=== PATIENT | female | born 2000 | race Hispanic/Latino ===

== ENCOUNTER 2024-01-14 22:01 | Emergency (ER) | payer OTHER, SELFPAY ==
[2024-01-14 22:02] VITALS: BP 116/90; PULSE 123; RESP 25; TEMP 37.4; O2SAT 99
[2024-01-14 22:03] VITALS: BMI 29.0
--- NOTE | 2024-01-14 22:27 | CT_ITS ---
INDICATION: abd pain COMPARISON: None. IV Contrast dosage and agent: 100 cc Isovue-370 IV. A radiation dose optimization technique was used for this scan. RADIATION DOSAGE (If Supplied By Facility): CTDIvol/DLP = ( 14.9 ) / ( 1087.30 ) mGy/mGycm FINDINGS: Contrast enhanced serial CT axial images through the abdomen and pelvis with coronal and sagittal reformatted series. PANCREAS: No peripancreatic fat stranding. BOWEL/MESENTERY: No dilated bowel loops. No significant free fluid. No free air. GALLBLADDER: No pericholecystic fat stranding. LIVER/STOMACH: Fatty liver. Likely associated hepatomegaly measuring up to 23 cm in the craniocaudal dimension. URINARY COLLECTING SYSTEM/ KIDNEYS: No obstructing ureteral calculus. No significant renal parenchymal abnormality. APPENDIX: Normal caliber gas containing appendix. LUNG BASES: Unremarkable. BONES: Unremarkable for age. CT/Abdomen/Pelvis W IV Cont ONLY IMPRESSION: No acute abdominal abnormality is identified, to include normal appendix and no evidence of obstructing ureteral calculus. Fatty liver with likely associated hepatomegaly. Electronically Signed: Tony Wright MD at 23:39 EDT ,
[2024-01-14] MEDS: Acetaminophen 500 MG Tablet 1000 MG PO (22:33)
[2024-01-14] MEDS: 0.9% Normal Saline (1000mL) 1,000 ML 999 ML IV (22:33)
[2024-01-14 22:34] LABS: Absolute Lymphocyte Count 1.15 X10^3/uL (0.83-4.51); Absolute Neutrophil Count 9.1 X10^3/uL (2.0-7.7); Basophil# 0.02 X10^3/uL; Basophil% 0.2 % (0-1); Eosinophil# 0.01 X10^3/uL; Eosinophils% 0.1 % (0-5); Hematocrit 36.9 % (37-47); Hemoglobin 12.9 g/dL (12.0-15.0); Lymphocyte # 1.15 X10^3/ul (0.83-4.51); Lymphocyte % 10.4 % (19-41); Mean Corpuscular Hgb 31.5 pg (27.0-32.0); Mean Corpuscular Volume 90.2 fL (81-99); Mean Platelet Vol. 10.5 fl (6.2-12.0); Monocyte# 0.78 X10^3/uL; NRBC Flagged by Analyzer 0 % (0-5); Neutrophil # 9.12 X10^3/uL (2.7-7.7); Platelet Count 229 K/mm3 (150-450); RBC Distribution Width CV 12.7 % (11.6-14.6); RBC Distribution Width SD 41.9 fl (35.1-43.9); Red Blood Count 4.09 M/mm3 (4.2-5.4); White Blood Count 11.1 K/mm3 (4.4-11.0)
[2024-01-14] MEDS: Ondansetron 4 MG/2 ML Vial IV (22:34)
[2024-01-14] MEDS: Morphine 4 MG/ML Syringe IV (22:34)
--- NOTE | 2024-01-14 22:36 | EDS_ITS ---
HPI History of Present Illness Chief Complaint: Abd Pain Informant: patient and spouse/S.O. Narrative Narrative: Patient is a 23-year-old female with no significant past medical history. She states she awoke this morning and noticed some mild generalized pain in the upper abdomen. She states with this she has had low-grade fever and nausea without vomiting. She denies any dysuria or hematuria or concern for . She states has been no vaginal discharge and denies concern for STD. She reports associated with the abdominal pain she is also noticed some right ear pain. She states there is no known sick contact. She states symptoms have not improved throughout the day and with that she has concern for infection and comes in for evaluation. PFSH PFSH Medical History no medical history no medical history Home Medications ?Medication ?Instructions ?Recorded ?Last Taken ?Type ondansetron 4 mg disintegrating 4 mg PO TID PRN nausea and 01/15/24 Unknown Rx tablet vomiting #21 tabs oxycodone-acetaminophen 5 mg-325 1 tab PO Q6H PRN pain 3 days #12 01/15/24 Unknown Rx mg tablet (Percocet) tabs Allergy/AdvReac Type Severity Reaction Status Date / Time No Known Allergies Allergy Verified 01/14/24 22:02 Social History Smoking Status: Never smoker [facility] ED Constitutional Constitutional ED: Reports fever(s) and subjective; Denies chills ENT ENT ED: Reports ear pain right; Denies sore throat Cardiovascular Cardiovascular: Denies chest pain Respiratory/Chest Respiratory/Chest: Denies cough or dyspnea Gastrointestinal Gastrointestinal: Reports abdominal pain and nausea; Denies constipation, diarrhea or vomiting Genitourinary Genitourinary ED: Denies dysuria or hematuria Musculoskeletal Musculoskeletal: Reports myalgias Integumentary Denies rash Neurologic Neurologic: Denies headache(s) Hematologic/Lymphatic Hematologic/Lymphatic: Denies easy bleeding or easy bruising EXAM Physical Exam Const Vital Signs: 01/14/24 22:02 01/14/24 22:43 01/15/24 00:29 Temperature 99.4 F H 100.7 F H Temperature Source Temporal Oral Pulse Rate 123 H 115 H 121 H Respiratory Rate 25 H 22 H 26 H Blood Pressure 116/90 H 124/66 H 117/61 Blood Pressure Mean 98 85 79 Pulse Ox 99 100 98 Oxygen Delivery Method Room Air Room Air Room Air 01/15/24 02:00 01/15/24 02:16 Temperature 98.4 F Temperature Source Pulse Rate 119 H 117 H Respiratory Rate 18 20 H Blood Pressure 102/64 90/77 Blood Pressure Mean 76 81 Pulse Ox 97 98 Oxygen Delivery Method Room Air Positive well nourished and well developed General Appearance ED: well developed; Negative for pallor HEENT Reports moist mucous membranes HEENT Narrative: Bilateral TMs are slightly retracted but show no secondary findings to suggest infection There is mild cobblestoning the posterior pharynx without airway edema or compromise or secondary changes to suggest infection Eyes PERRL and EOMs intact bilaterally General Eye ED: Negative for scleral icterus Neck supple Neck Narrative: No nuchal rigidity or meningeal signs Resp normal respiratory effort and clear to auscultation bilaterally Cardio regular rhythm Rate: tachycardic and other Other Details: Tachycardic rate with regular rhythm No murmurs rubs or gallop Radial and carotid pulses are equal and symmetric GI non-distended and no masses GI Narrative: Abdomen is soft and nondistended with normal active bowel sounds. Patient has mild pain with palpation in the midepigastric region without voluntary guarding or rigidity. No pulsatile mass or fluid wave. Negative Lynn sign Auscultation: normoactive bowel sounds Palpation: soft Back/Spine no CVA tenderness Extremity normal to inspection Neuro oriented x3, CN's II-XII intact bilaterally and no sensory deficits noted Sensorium / Orientation: alert Motor Exam: strength 5/5 throughout Psych mental status grossly normal Skin no rashes or lesions noted General Skin Exam: Negative for jaundice or pallor MDM MDM MDM Narrative Medical decision making narrative: Patient arrived to the ER with low-grade fever and mild tachycardia. She had complaints such as midepigastric abdominal pain ear pain and fatigue. There is concern this could be biliary colic versus acute cholecystitis versus pancreatitis versus abnormal UTI potential complication or viral syndrome such as COVID RSV or influenza. Therefore basic labs along with urine sample and CT scan were obtained. Labs revealed no clinically significant findings and urine showed no sign of infection. Viral swab was also negative. CT scan revealed no acute abdominal pathology. Therefore at this time as overall workup is negative and patient's had improvement of symptoms and vitals with treatment in the ER I feel that she is otherwise safe for discharge. Patient was informed this is most likely a viral process based on her constellation of symptoms and low-grade fever but as there is no signs of systemic infection or underlying acute intestinal process she can be treated with symptomatic medications History & Record Review Discussion w/independent historian: Patient and Significant other Lab Data Attestation: I reviewed the patient's lab results. Labs: Laboratory Results - last 24 hr 01/14/24 01/14/24 22:24 22:32 WBC 11.1 H RBC 4.09 L Hgb 12.9 Hct 36.9 L MCV 90.2 MCH 31.5 MCHC 35.0 RDW Std Deviation 41.9 RDW Coeff of [place] 12.7 Plt Count 229 MPV 10.5 Immature Gran % (Auto) 0.300 Neut % (Auto) 82.0 H Lymph % (Auto) 10.4 L Webster % (Auto) 7.0 Eos % (Auto) 0.1 Baso % (Auto) 0.2 Absolute Neuts (auto) 9.1 H Absolute Lymphs (auto) 1.15 Nucleated RBC % 0 Sodium 132 L Potassium 3.2 L Chloride 101 Carbon Dioxide 21.0 Anion Gap 10 BUN 13 Creatinine 0.88 Estim Creat Clear Calc 101.51 Est GFR (MDRD) Af Amer 101 Est GFR (MDRD) Non-Af 83 BUN/Creatinine Ratio 14.9 Glucose 120 H Calcium 8.9 Total Bilirubin 0.50 Direct Bilirubin 0.20 AST 71 H ALT 125 H Alkaline Phosphatase 113 Total Protein 8.3 H Albumin 4.1 Globulin 4.2 Lipase 25 Urine Color Yellow Urine Clarity Clear Urine pH 8.0 Ur Specific [place] 1.010 Urine Protein 15 H Urine Glucose (UA) Normal Urine Ketones 5 H Urine Occult Blood Negative Urine Nitrite Negative Urine Bilirubin Negative Urine Urobilinogen 1 H Ur Leukocyte Esterase 25 H Urine RBC 0 SEEN Urine WBC 0-5 SEEN Ur Squamous Epith Cells 5-10 SEEN Amorphous Sediment 1+ PHOS Urine Bacteria 0 SEEN Urine Mucus 0 SEEN Urine Test Negative Radiography Diagnostic Testing: Clinical Impression(s) from Imaging Studies Abdomen/Pelvis CT 01/14/24 22:27 IMPRESSION: No acute abdominal abnormality is identified, to include normal appendix and no evidence of obstructing ureteral calculus. Fatty liver with likely associated hepatomegaly. Electronically Signed: Tony Wright MD at 23:39 EDT , Discharge Plan Triage Chief Complaint: Abd Pain ED Provider: Tristan Huff Dx/Rx/DC Orders Clinical Impression: Nonspecific abdominal pain, Viral syndrome, Pyrexia Instructions: Abdominal Pain, ED Fever Control (Adult), ED Viral Syndrome (Adult) Prescriptions: New oxycodone-acetaminophen [Percocet] 5-325 mg tablet 1 tab PO Q6H PRN (Reason: pain) 3 Days Qty: 12 0RF ondansetron 4 mg tablet,disintegrating 4 mg PO TID PRN (Reason: nausea and vomiting) Qty: 21 0RF Primary Care Provider: Care Physician,No Primary Referrals: Rambo Hernandez MD [Med Staff - Active Staff] - Care Physician,No Primary [Primary Care Provider] - Activity Restrictions/Additional Instructions: Your workup today did not show any signs of COVID urinary tract infection or abdominal infection such as appendicitis or pancreatitis. This indicates you have a virus causing your symptoms which would typically last 3 to 7 days before resolving. Stay well-hydrated and keep your fever under control and return to the ER should you have any further concerns Print Language: Syriac Disposition Disposition: Home, Self Care Discharge Date/Time: 01/15/24 02:17
[2024-01-14 22:38] LABS: Bacteria 0 SEEN /hpf (None Seen); Mucous, Urine 0 SEEN /hpf (<or=2+); Red Blood Cells-Urine 0 SEEN /hpf (0-5)
[2024-01-14 22:40] LABS: Color, Urine Yellow (Yellow); Glucose, Dipstick Normal (Normal); Ketone-Dipstick 5 mg/dl (Negative); Leukocyte Esterase-Dipstick 25 /ul (Negative); Nitrite-Dipstick Negative (Negative); Occult Blood-Urine Negative /ul (Negative); Protein-Dipstick 15 mg/dl (Negative); Urine Bilirubin Dipstick Negative (Negative); Urine Clarity Clear (Clear); Urine Urobilinogen 1 mg/dl (Normal)
[2024-01-14 22:43] VITALS: BP 124/66; PULSE 115; RESP 22; O2SAT 100
[2024-01-14 22:44] LABS: Internal QC Validated? YES +Cl - CLEAR BKGD; Pregnancy, Urine Negative Negative
[2024-01-14 22:48] LABS: Amorphous Sediment 1+ PHOS; Squamous Epithelial Cells - UA 5-10 SEEN /hpf (5-10); White Blood Cells 0-5 SEEN /hpf (0-5)
[2024-01-14 22:52] LABS: AST(SGOT) 71 U/L (15-37); Alanine Aminotransfer ALT/SGPT 125 U/L (13-56); Albumin, Serum 4.1 g/dL (3.2-5.0); Alkaline Phosphatase 113 U/L (45-117); Anion Gap 10 (5-15); BUN 13 mg/dL (7-18); BUN/Creat Ratio 14.9 RATIO (10-20); Calcium,Total 8.9 mg/dL (8.5-10.1); Chloride 101 mmol/L (98-107); Creatinine, Serum 0.88 mg/dL (0.55-1.02); EST Glomerular Filtration Rate 83 mL/min (>60); Est Glom Filt Rate - Afr Amer 101 mL/min (>60); Estimated Creatinine Clearance 101.51 ml/min; Globulin 4.2 g/dL (2.2-4.2); Glucose 120 mg/dL (74-106); Lipase 25 U/L (13-75); Potassium 3.2 mmol/L (3.5-5.1); Protein, Total 8.3 g/dL (6.4-8.2); Sodium Level 132 mmol/L (136-145)
[2024-01-15 00:29] VITALS: BP 117/61; PULSE 121; RESP 26; TEMP 38.2; O2SAT 98
[2024-01-15 02:00] VITALS: BP 102/64; PULSE 119; RESP 18; O2SAT 97
[2024-01-15 02:16] VITALS: BP 90/77; PULSE 117; RESP 20; TEMP 36.9; O2SAT 98
== END 2024-01-15 02:17 | disposition home or self-care (01) ==
PROVIDERS: Emergency Provider Emergency Medicine; Visit Provider Emergency Medicine
DX: R10.9 Unspecified abdominal pain (principal); B34.9 Viral infection, unspecified; R50.9 Fever, unspecified; R11.0 Nausea; H92.01 Otalgia, right ear; R00.0 Tachycardia, unspecified
CPT/HCPCS: 74177; 80048; 80076; 81001; 81025; 83690; 85025; 87631; 96361; 96374; 96375; 99283; J7030; Q9967; A4216; J2405